=== PATIENT | male | born 1985 | race Caucasian/White ===

== ENCOUNTER 2020-06-03 08:14 | Outpatient (REF) | payer OTHER, SELFPAY | END 2020-06-03 08:15 | disposition home or self-care (01) | LOC: HO.HMGCLDS 08:14 | PROVIDERS: PCP Internal Medicine; Visit Provider Internal Medicine | DX: Z20.828 Contact with and (suspected) exposure to other viral communicable diseases (principal) | CPT/HCPCS: C9803; U0003 ==

== ENCOUNTER 2020-06-11 09:44 | Outpatient (REF) | payer OTHER, SELFPAY | END 2020-06-11 09:45 | disposition home or self-care (01) | LOC: HO.HMGCLDS 09:44 | PROVIDERS: PCP Internal Medicine; Visit Provider Internal Medicine | DX: Z20.828 Contact with and (suspected) exposure to other viral communicable diseases (principal) | CPT/HCPCS: C9803; U0003 ==

== ENCOUNTER 2020-08-06 07:14 | Outpatient (REF) | payer OTHER, SELFPAY ==
[2020-08-06 07:49] LABS: MANUAL DIFF FLAG NO
[2020-08-06 08:02] LABS: Basophils Absolute Auto 0.1 X10*3/uL (0.0-0.2); Eosinophils Absolute Auto 0.1 X10*3/uL (0.0-0.4); Eosinophils Percent Auto 1.8 % (0-4); Hematocrit 46.5 % (42-52); Hemoglobin 14.8 g/dl (14.0-18.0); Imm Gran Abs Auto 0.02 X10*3/uL (0.00-0.03); Imm Gran Pct Auto 0.3 % (0.0-0.4); Lymphocytes Absolute Auto 2.1 X10*3/uL (1.2-4.9); Lymphocytes Percent Auto 33.2 % (20-40); Mean Corpuscular HGB Conc 31.8 g/dl (31.0-36.0); Mean Corpuscular Hemoglobin 25.7 pg (27.0-33.0); Mean Corpuscular Volume 80.7 fL (80-98); Mean Platelet Volume 9.9 fL (9.4-12.4); Monocytes Absolute Auto 0.4 X10*3/uL (0.1-1.2); Monocytes Percent Auto 7.1 % (2-11); Neutrophils Absolute Auto 3.5 X10*3/uL (2.0-8.3); Neutrophils Percent Auto 56.6 % (45-73); Platelet Count 222 X10*3/uL (160-400); Red Blood Count 5.76 X10*6/uL (4.60-5.80); Red Cell Distribution Width 13.7 % (11.0-16.0); White Blood Count 6.2 X10*3/uL (4.8-10.8)
[2020-08-06 08:31] LABS: Alanine Aminotransferase 14 U/L (0-40); Albumin Level 4.4 g/dL (3.5-5.0); Alkaline Phosphatase 96 U/L (39-117); Anion Gap 12 (12-20); Aspartate Amino Transferase 15 U/L (5-37); Bilirubin Total 0.4 mg/dL (0.0-1.0); Blood Urea Nitrogen 20 mg/dL (9-16); Calcium 8.9 mg/dL (8.4-10.2); Carbon Dioxide 30 mmol/L (22-29); Chloride 111 mmol/L (96-108); Cholesterol 144 mg/dL; Estimated Glomerular Filt Rate > 60; Glucose Fasting 97 mg/dL (60-99); HDL Cholesterol 36 mg/dL; LDL Cholesterol Calculated 97 mg/dl; Potassium 4.5 mmol/l (3.3-5.1); Sodium 148 mmol/L (135-145); Total Protein 7.2 g/dL (6.5-8.0); Triglycerides 57 mg/dL
[2020-08-06 08:56] LABS: TSH reflex Free T4 1.18 mIU/mL (0.32-4.0)
== END 2020-08-06 07:15 | disposition home or self-care (01) ==
LOC: HO.LAB 07:14
PROVIDERS: Visit Provider Internal Medicine
DX: E04.9 Nontoxic goiter, unspecified (principal); E66.9 Obesity, unspecified; M25.50 Pain in unspecified joint; Z82.49 Family history of ischemic heart disease and other diseases of the circulatory system
CPT/HCPCS: 36415; 80053; 80061; 84443; 85025

== ENCOUNTER 2020-08-15 08:59 | Outpatient (REF) | payer OTHER, SELFPAY ==
--- NOTE | 2020-08-15 09:04 | US_ITS ---
EXAMINATION: US THYROID CLINICAL INFORMATION: Nontoxic goiter, unspecified COMPARISON: None TECHNIQUE: Linear transducer petty-scale and color Doppler examination with attention to the region of the thyroid. FINDINGS: SIZE: Measurements of the thyroid lobes and nodules are given in sagittal, anteroposterior and transverse dimensions respectively. Right Thyroid Lobe: 5.3 x 1.5 x 2.1 cm, volume 8.5 mL. Parenchyma: The gland echotexture is homogeneous. Thyroid vascularity is normal. Left Thyroid Lobe: 5.2 x 1.8 x 1.6 cm, volume 7.8 mL. Parenchyma: The gland echotexture is homogeneous. Thyroid vascularity is normal. Isthmus: 0.3 cm in maximum AP dimension. NODES: No lymphadenopathy is seen in the tissue surrounding the thyroid gland. US/US thyroid IMPRESSION: Normal appearance of the thyroid gland. ACR TI-RADS Recommendations: No further follow-up. * TR1 (0 point) and TR 2 (2 points): No FNA or follow up * TR3 (3 points): FNA if more than or equal to 2.5 cm in maximum dimension, follow up in 1, 3 and 5 years if 1.5 to 2.4 cm in maximum dimension. * TR 4 (4-6 points): FNA if more than or equal to 1.5 cm in maximum dimension, follow up in 1, 2, 3 and 5 years if 1 to 1.4 cm in maximum dimension. * TR 5 (more than or equal to 7 points): FNA if more than or equal to 1 cm in maximum dimension, follow up every year for 5 years if 0.5 to 0.9 cm in maximum dimension.
--- NOTE | 2020-08-15 09:04 | XR_ITS ---
EXAMINATION: XR HAND, RIGHT XR HAND, LEFT CLINICAL INFORMATION: Pain in the hands COMPARISON: 02/06/2019 TECHNIQUE: 3 views of each hand FINDINGS: Right hand: No fracture or dislocation. Alignment is anatomic. Joint spaces are maintained. The soft tissues are unremarkable. Left hand: No fracture or dislocation. Alignment is anatomic. Joint spaces are maintained. There is a tiny radiopaque density in the dorsal soft tissues of the hand at the level of the mid metacarpal shafts. This is unchanged. XR/XR hand LT 2V IMPRESSION: Tiny radiopaque foreign body in the dorsal soft tissues of the left hand, unchanged from prior. Otherwise normal appearance of the hands.
--- NOTE | 2020-08-15 09:04 | XR_ITS ---
EXAMINATION: XR HAND, RIGHT XR HAND, LEFT CLINICAL INFORMATION: Pain in the hands COMPARISON: 02/06/2019 TECHNIQUE: 3 views of each hand FINDINGS: Right hand: No fracture or dislocation. Alignment is anatomic. Joint spaces are maintained. The soft tissues are unremarkable. Left hand: No fracture or dislocation. Alignment is anatomic. Joint spaces are maintained. There is a tiny radiopaque density in the dorsal soft tissues of the hand at the level of the mid metacarpal shafts. This is unchanged. XR/XR hand RT 2V IMPRESSION: Tiny radiopaque foreign body in the dorsal soft tissues of the left hand, unchanged from prior. Otherwise normal appearance of the hands.
== END 2020-08-15 09:00 | disposition home or self-care (01) ==
LOC: HO.US 08:59
PROVIDERS: PCP Internal Medicine; Visit Provider Internal Medicine
DX: E04.9 Nontoxic goiter, unspecified (principal); M79.642 Pain in left hand; M79.641 Pain in right hand
CPT/HCPCS: 73120; 76536

== ENCOUNTER 2020-10-01 15:00 | Outpatient (RCR) | payer OTHER, SELFPAY ==
--- NOTE | 2020-09-04 09:00 | MHC.OT.OEV ---
[address] [phone] F: [phone] Occupational Therapy Evaluation Diagnosis: De Quervain's Tendinitis, mild CTS Date of Onset: 08/19/14 Attending Provider: Dr Percy Yost Prescribed Treatment: Eval and Treat History of Current Condition: Pt w/ bilateral hand pain over the past few years, saw a hand therapist in [place] and was recommended to wear a thumb spica orthosis for De Quervain's tendinitis. Significant Medical History: None Precautions/Contraindications: None Patient Goals: Strengthen hands Hand Dominance: Right QuickDASH Score: 41 Prior Level of Function and Occupation Self Care, Employment, Leisure: Works for a [employer], travels, does some lifting w/ good activity modification (uses carts instead of carrying) Living Situation, Family and/or Social Support: Lives w/ and 5 mo old daughter Current Level of Function and Occupation Self Care, Employment, Leisure: Difficulty lifting his daughter, pain w/ carrying groceries Sleep: Some restlessness due to hand pain, also with other pain throughout body, wears compression Driving: [facility], wears wrist orthosis, drives for works Vision: [facility] Balance: [facility] Pain Assessment Pain Score: 0-8 Pain Scale Used: Pain Location and Description: Tenderness and pain at B/L radial wrists, right > left, (+) Finklestein's Aggravating Factors: Pain w/ lifting Alleviating Factors: Wears soft neoprene orthosis, Aleve PRN Skin and Soft Tissue Assessment Skin and Soft Tissue: Comments: Mild atrophy right thenar eminence Nerve assessment Ulnar Nerve: WNL Median Nerve: WNL Radial Nerve: WNL Comments: (-) Phalen's Sensory Assessment Light Touch: WFL Proprioception: WF Comments: [place] Bill 3.61 Right median distribution, otherwise B/L 2.83 Edema Assessment Upper Extremity: WNL Lower Extremity: WNL Comments: Wrist R 17.7 cm L 17.4 cm Dexterity Assessment Comments: Pt states he drops items Nine Hole Peg R 26 sec L 28 sec Special Tests Comments: AROM(PROM) Strength Digits Index MCP: PIP: DIP: Long MCP: PIP: DIP: Ring MCP: PIP: DIP: Small MCP: PIP: DIP: Comments: Gross Grasp: R 80 L 90 Lateral Pinch: R 14 L 17 Two-Point Pinch: R 10 L 8 Three-Jaw Francois: R 16 L 13 Comments: Patient Education Primary Language: Grenadian Level Vial Inspector And Tester Required: No Current Knowledge: Understands information with skills for self-management Teaching Method: Handouts Verbal Education Needs Identified on Evaluation: ADL's Disease Information Equipment Use Exercise Pain Safety How did patient/family demonstrate learning? Patient demonstrates Patient verbalizes Barriers to Learning: None Readiness for Learning: Accepting Who was educated? Patient Comments: HEP for De Quervains and CTS Plan of Care Assessment: Blade presents w/ B/L hand pain for > five years, right worse than left. He was seen once in therapy in [place] and has been wearing a thumb spica orthosis in his right hand with some relief. On assessment, he has mild weakness in right hand, slightly impaired sensation in right thumb and index and is reporting low pain. S/S consistant with De Quervain's tendinitis and mild CTS, right worse than left. He will benefit from cont'd therapy to address joint protection, activity modification and progression of HEP. STG Duration: 1 week Short Term Goals: Ind w/ HEP Good use of ice and heat appropriately Good follow through w/ activity modification and joint protection technqiues LTG Duration: 3 weeks Residential Goals: Right gross grasp >90 lb QuichDASH score <25 pts Pt to report decrease pain/nunbess at nighttime Frequency and Duration: The patient will be seen 2x/wk for 3 weeks Treatment Plan: Therapeutic Exercise Therapeutic Activity Home Exercise Program Splinting Patient Education Edema Control ADL Training Ultrasound Iontophoresis Fluidotherapy MHP Cold Packs Soft Tissue Mobilization Kinesiotaping Electronically Signed By: Gini Antonio OTR/L Please sign and return to therapist, Thank you for your referral.
--- NOTE | 2020-10-01 15:32 | MHC.OT.DC ---
[address] [phone] F: [phone] Occupational Therapy Discharge Note Provider: Dr Percy Yost Diagnosis: De Quervain's Tendinitis, mild CTS Date of Evaluation: 09/04/20 Date of Discharge: 10/01/20 Treatments to Date: 5 Cancellations to Date: 0 No Shows to Date: 0 Discharge Status: Achieved Goals Improved Function Independent with HEP Discharge Summary: Goals met, doing well w/ strength, range and overall self management w/ orthosis, HEP and joint modification/activity modifications. Electronically Signed By: Gini Antonio OTR/L Please Sign and return to therapist, thank you for your referral.
== END 2020-10-01 15:32 | disposition other institution (70) ==
LOC: HO.OT 15:00
PROVIDERS: PCP Internal Medicine; Visit Provider Internal Medicine
DX: M79.641 Pain in right hand (principal); M79.642 Pain in left hand
CPT/HCPCS: 97033; 97110; 97140; 97165

== ENCOUNTER 2021-04-04 23:46 | Emergency (ER) | payer OTHER, SELFPAY ==
--- NOTE | ~2021-04-04 | XR_ITS ---
EXAMINATION: XR FOOT, RIGHT CLINICAL INFORMATION: Pain COMPARISON: None TECHNIQUE: AP, lateral, and oblique views of the right foot. FINDINGS: Osseous alignment is anatomic. No acute fracture is seen. Posterior calcaneal spur is noted. Some soft tissue swelling is present along the medial proximal foot. XR/XR foot RT 2V IMPRESSION: No acute osseous findings. Soft tissue swelling of the proximal foot.
[2021-04-05 00:34] VITALS: BP 127/76; PULSE 90; RESP 18; TEMP 36.2; O2SAT 99; BMI 34.2
--- NOTE | 2021-04-05 00:43 | PC.NURSE ---
pt called from waiting room with no answer.
--- NOTE | 2021-04-05 01:19 | ED_ITS ---
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 since afternoon today does not remember any injury but was getting heavy weights at work and tilted to one side since then complaining of pain in the right dorsum of the foot Related Data Previous Rx's Medication Instructions Recorded ibuprofen 600 mg tablet 600 mg PO Q6H PRN #20 tab 04/05/21 Allergies Allergy/AdvReac Type Severity Reaction Status Date / Time No Known Allergies Allergy Verified 08/05/20 14:00 [No Known Allergies*] Review of Systems Review of Systems: Yes all other systems are reviewed and are negative [facility] Past Medical History Medical History Family history of hypertension Goiter Hand pain Obese Polyarthralgia Surgical History No pertinent past surgical history Family History Family History Father No problems noted. Mother Hypertension Maternal Grandfather Cancer Maternal Aunt Cancer Diabetes Stroke Brother No problems noted. Social History Social History Alcohol intake: current Alcohol intake frequency: holidays/special occasions only Advance Directives: No Physical Exam Vital Signs: Vital Signs: Last Vital Signs Temp 97.2 F 04/05/21 00:34 Pulse 90 04/05/21 00:34 Resp 18 04/05/21 00:34 BP 127/76 04/05/21 00:34 Pulse Ox 99 04/05/21 00:34 Body Mass Index 34.2 Const: General: no acute distress Extrem: Ankle/foot/toe images: 1. Soft tissue swelling and on the dorsum and lateral aspect of the right foot with tenderness no deformity Discharge Plan Discharge Clinical Impression: Right foot sprain Qualifiers: Encounter type: initial encounter Qualified Code(s): S93.601A - Unspecified sprain of right foot, initial encounter Patient Disposition: Home, Self-Care Instructions: Foot Sprain (ED) Additional Instructions: Apply ice rest to the right foot Apply Speedy wrap for support Walk on heels Ibuprofen for pain Prescriptions: New ibuprofen 600 mg tablet 600 mg PO Q6H PRN (Reason: pain) Qty: 20 RF: 0 Stand Alone Forms: Work/School Release Interventions: ED Discharge Assessment Last Done: 04/05/21 01:51 Discharge Date/Time: 04/05/21 02:05
[2021-04-05] MEDS: Ibuprofen 600 MG TABLET PO (01:29)
== END 2021-04-05 02:05 | disposition home or self-care (01) ==
PROVIDERS: Emergency Provider Internal Medicine; PCP Internal Medicine
DX: S93.601A Unspecified sprain of right foot, initial encounter (principal); M79.671 Pain in right foot; R60.0 Localized edema; X58.XXXA Exposure to other specified factors, initial encounter; Y93.9 Activity, unspecified; Y92.9 Unspecified place or not applicable; Y99.9 Unspecified external cause status; Z79.899 Other long term (current) drug therapy
CPT/HCPCS: 73620; 99283

== ENCOUNTER 2021-06-02 15:30 | Outpatient (RCR) | payer OTHER, SELFPAY ==
--- NOTE | 2021-05-13 11:00 | MHC.OT.OEV ---
[address] [phone] F: [phone] Occupational Therapy Evaluation Diagnosis: Left Hand Pain Date of Onset: 02/16/21 Date of Surgery: Attending Provider: Dr Percy Yost Prescribed Treatment: Eval and Treat MD Follow Up Appointment: History of Current Condition: Pt started a new job in October, fell and hit his right hand and wrist, had increased pain and edema and was favoring left hand. He has since developed pain and edema in his left hand/wrist. Right hand has recovered, but left symptoms persist. 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 [employer] Living Situation, Family and/or Social Support: Lives w/ with and 13 mo old daughter Current Level of Function and Occupation Self Care, Employment, Leisure: Difficulty w/ repetetive lifitng of boxes at work, occasional pain w/ lifting his daughter Sleep: Sometimes goes to bed with pain and wakes up frequently Driving: No issues Vision: Balance: Pain Assessment Pain Score: Pain Scale Used: Numeric (0 - 10) Pain Location and Description: Left hand dorsal webspace, unable to provoke w/ tenderness or resistance during assessment Worsens throughout the day, throbbing at times Aggravating Factors: Lifting objects, carrying his daughter Alleviating Factors: Aleve, thumb spica, alternates between cool and warm packs, K-tape for work Skin and Soft Tissue Assessment Skin and Soft Tissue: Comments: WNL Nerve assessment Ulnar Nerve: WFL Median Nerve: WFL Radial Nerve: WFL Comments: Sensory Assessment Temperature: WFL Light Touch: WFL Proprioception: WFL Vibration: Comments: Pt reports tingling in all digit tips and cold feeling at times when he has 'flare ups' of pain Edema Assessment Upper Extremity: WNL Lower Extremity: WNL Comments: Dexterity Assessment Dexterity: WFL Comments: Special Tests Comments: (+) Finklestein's AROM(PROM) Strength Cervical Cervical Flexion: Cervical Extension: Cervical Lateral Flexion: Cervical Rotation: Comments: WFL Shoulder Flexion: Extension: Abduction: Internal Rotation: External Rotation: Comments: WFL Flexion: Extension: Abduction: Internal Rotation: External Rotation: Comments: Elbow Flexion: Extension: Pronation: Supination: Comments: WFL Flexion: Extension: Pronation: Supination: Comments: Wrist Flexion: Extension: Ulnar Deviation: Radial Deviation: Comments: WFL Flexion: Extension: Ulnar Deviation: Radial Deviation: Comments: Thumb Thumb CMC Flexion: Thumb MCP Flexion: Thumb IP Flexion: Radial Abduction: Palmar Abduction: Lugoff (Kapandji 0-10): Comments: WFL Digits Index MCP: PIP: DIP: Long MCP: PIP: DIP: Ring MCP: PIP: DIP: Small MCP: PIP: DIP: Comments: WFL Gross Grasp: R 82 L 48 Lateral Pinch: R 13 L 12 Two-Point Pinch: R 3 L 7 Three-Jaw Francois: R 3 L 7 Comments: Patient Education Primary Language: Pneumatic Hoist Operator Required: No Current Knowledge: Understands information with skills for self-management Teaching Method: Demonstration Verbal Education Needs Identified on Evaluation: ADL's Exercise Pain Safety How did patient/family demonstrate learning? Patient demonstrates Patient verbalizes Barriers to Learning: None Readiness for Learning: Accepting Who was educated? Patient Comments: Plan of Care Assessment: 36 yo right hand dominant male presents w/ persistent left hand pain over the past couple months. Original injury was fall onto right hand, but since he was favoring hand and completing most home and work tasks w/ left hand, he now has increase in pain, specifically in dorsal webspace and worsened after daily activities and work tasks. On assessment, edema and range are WFL. He sigala decreased gross grasp, but three pinches are equal to right. I am unable to elicit his symptoms or pain, but he works relief w/ k-tape to dorsal index, thumb and hand. We will continue OT for pain management education, functional strengthening, joint protection and activity modification, likely brief course. STG Duration: 3 weeks Short Term Goals: Ind w/ HEP Pt to report <3/10 w/ work tasks Left gross grasp >70lb Quickdash score <30 pts LTG Duration: Color Adviser Goals: same as above Frequency and Duration: The patient will be seen 2x/wk for 3 weeks Treatment Plan: Therapeutic Exercise Therapeutic Activity Home Exercise Program Patient Education Edema Control ADL Training Ultrasound Paraffin Fluidotherapy MHP Cold Packs Soft Tissue Mobilization Kinesiotaping Electronically Signed By: Gini Antonio OTR/L Reviewed/agree with student documentation: N/A Therapist: Please sign and return to therapist, Thank you for your referral.
--- NOTE | 2021-07-07 13:47 | MHC.OT.DC ---
[address] [phone] F: [phone] Occupational Therapy Discharge Note Provider: Dr Percy Yost Diagnosis: Left Hand Pain Date of Evaluation: 05/13/21 Date of Discharge: 07/07/21 Treatments to Date: 3 Discharge Status: Achieved Goals Independent with HEP Patient Elected to Stop Discharge Summary: Blade was referred to OT for left hand pain due to overuse injury. He has not attended OT in over a month, however on last visit he was mostly asymptomic and reported pain and edema primarily after work tasks. He is Ind w/ his home program and activity modification. Electronically Signed By: Gini Antonio OTR/Frances CHT Reviewed/agree with student documentation: N/A Therapist: Please Sign and return to therapist, thank you for your referral.
== END 2021-07-07 13:48 | disposition home or self-care (01) ==
LOC: HO.OT 15:30
PROVIDERS: PCP Internal Medicine; Visit Provider Internal Medicine
DX: M79.642 Pain in left hand (principal)
CPT/HCPCS: 97035; 97110; 97140; 97165

== ENCOUNTER 2021-06-24 14:00 | Outpatient (REF) | payer OTHER, SELFPAY | END 2021-06-24 14:01 | disposition home or self-care (01) | LOC: HO.HMGCLDS 14:00 | PROVIDERS: Visit Provider Internal Medicine | DX: Z20.822 Contact with and (suspected) exposure to COVID-19 (principal) | CPT/HCPCS: C9803; U0003; U0005 ==

== ENCOUNTER 2022-09-28 15:17 | Outpatient (REF) | payer BC, OTHER, SELFPAY ==
--- NOTE | ~2022-09-28 | XR_ITS ---
EXAMINATION: XR THORACOLUMBAR SPINE CLINICAL INFORMATION: Thoracic spine pain x3 months. COMPARISON: None available. TECHNIQUE: 3 views thoracic spine. FINDINGS: The vertebral alignment is normal. No intrinsic bony abnormality. The disc heights and are well maintained. The endplates show minimal spondylitic changes. No fracture or subluxation. The surrounding prevertebral soft tissues are unremarkable. XR/XR thoracic spine 2V IMPRESSION: Minimal spondylitic change. No acute finding.
== END 2022-09-28 15:18 | disposition home or self-care (01) ==
LOC: HO.XRAY 15:17
PROVIDERS: PCP Internal Medicine; Visit Provider Internal Medicine
DX: M54.6 Pain in thoracic spine (principal)
CPT/HCPCS: 72070

== ENCOUNTER 2022-10-20 16:00 | Outpatient (RCR) | payer BC, SELFPAY ==
--- NOTE | 2022-10-01 15:44 | MHC.PT.EP ---
[facility] [place] Office [place] Office [place] Office [address] Sylwia Alamguer [address] [phone] F: [phone] F: [phone] F: [phone] F: [phone] Physical Therapy Plan of Care Date of Evaluation: Date of Surgery: Diagnosis: Thoracic spine pain. Assessment: Pt is a 37 y/o male referred to PT for eval and treat of thoracic spine pain resulting in decreased tolerance for lifting objects of weight, tolerating static sitting and standing for duration, as well as performing heavy work and HH chore tasks, and disturbed sleep secondary to swayback posture, decreased core strength, spinal instability, decreased trunk ROM, increased dorsal tissue tension, and pain. Pt is deemed an appropriate candidate to receive skilled PT services to address their physical impairments in order to improve their functional ability. Frequency and Duration: The patient will be seen 2 x / wk x 5 wks. Short Term Goals: Initiate HEP and lumbar stab. Improve baseline pain with activity to < 1-6/10; initial: 2-8/10. Loan Review Analyst Goals: I with home program. Pt will be able to sit as long as he'd like with managed Sx; initial: < 1hour. Pt will report < 1/4 disturbed night's sleep; initial: 1/2 disturbed. Improve core strength to WNL: initial: good(-). Improve Jia by 9 points in order to demonstrate improved functional ability. Treatment Plan: Modalities to reduce pain, spasms and effusion. Manual therapy to restore motion and function. Therapeutic exercise to improve strength and flexibility. Neuromuscular re-education for posture and balance. Therapeutic activities to return to functional activities of daily living. Electronically signed by: Reid Xie PT Please sign and return to therapist. Thank you for your referral.
--- NOTE | 2022-12-24 08:28 | MHC.PT.DC ---
[facility] [place] Office [place] Office [place] Office [address] Sylwia Almaguer [address] [phone] F: [phone] F: [phone] F: [phone] F: [phone] Physical Therapy Discharge Report Diagnosis: Thoracic spine pain. Date of Surgery: Date of Evaluation: 10/01/22 Date of Discharge: 12/24/22 Treatments to Date: 4 Cancellations to Date: 3 No Shows to Date: 2 Discharge Status: Visit Non-compliance Discharge Summary: Electronically signed by: Reid Xie PT. Please sign and return to therapist. Thank you for your referral.
== END 2022-12-24 08:27 | disposition home or self-care (01) ==
LOC: HO.PTCHIC 16:00
PROVIDERS: PCP Internal Medicine; Visit Provider Internal Medicine
DX: M54.6 Pain in thoracic spine (principal)
CPT/HCPCS: 97110; 97161

== ENCOUNTER 2022-10-21 09:52 | Outpatient (REF) | payer BC, SELFPAY ==
[2022-10-21 11:34] LABS: Appearance Urine Clear; Color Urine Yellow; Glucose Urine UA Negative (Negative); Leukocyte Esterase Urine Negative (Negative); Nitrite Urine Negative (Negative); PH 6.5 (5.0-9.0); Urine Blood Negative (Negative); Urine Ketones Negative (Negative); Urine Protein Negative (Neg-Trace)
== END 2022-10-21 09:53 | disposition home or self-care (01) ==
LOC: HO.LAB 09:52
PROVIDERS: PCP Internal Medicine; Visit Provider Internal Medicine
DX: R30.0 Dysuria (principal)
CPT/HCPCS: 81003

== ENCOUNTER 2023-03-10 14:37 | Outpatient (AMB) | payer BC, SELFPAY ==
[2023-03-10 14:44] VITALS: BP 118/80; BMI 36.6
--- NOTE | 2023-03-10 14:44 | A.OFFPC_ITS ---
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: No Accompanied by: Child Allergies No Known Allergies [No Known Allergies*] Allergy (Verified 03/10/23 14:55) Medication List - Last Reconciled 03/10/23 by Nancy Yost MD No Known Home Meds Tobacco use date assessed: 09/09/22 Dental Screening Dental Screen Date: 03/10/23 Did you have a dental visit in the last 12 months?: Yes Did you have a dental problem in the last 6 months where you did not have access to dental care?: No Was dental information given to patient?: Patient has dentist HPI HPI Comments History of Present Illness Details This is 37-year-old male that comes for his physical exam. Denies any chest pain or shortness of breath. No fever or cough. Doing well. [facility] Medical History (Updated 03/10/23 @ 15:04 by Nancy Yost MD) Family history of hypertension Goiter Hand pain Left hand pain Obese Polyarthralgia Surgical History No pertinent past surgical history Family History (Updated 03/10/23 @ 14:57 by Nancy Yost MD) Father Diabetes Mother Hypertension Maternal Grandfather Cancer Maternal Aunt Cancer Diabetes Stroke Brother No problems noted. Social History Housing: Apartment Alcohol intake: current Alcohol intake frequency: holidays/special occasions only Alcohol type: hard liquor Patient Tobacco Use Status: Never used Tobacco e-Cigarette/Vaping Use: Never Used Second Hand Smoke Exposure: No service: No Current occupational status: employed Current occupational exposures/hazards: No Cognitive needs: No Hearing needs: No Vision needs: Yes Questionnaire Thrive Questionnaire Date Thrive assessed: 09/09/22 JHONATHAN-7 AMB Questionnaire JHONATHAN-7 Date JHONATHAN - 7 assessed: 09/09/22 Source: Developed by Drs. Barron Aguayo, Tatum Reyes, Edi Andre and colleagues, with an educational sally from [employer]. Review of Systems Const All systems reviewed & are unremarkable except as noted in HPI and below Eyes Reports no additional complaints, Denies change in vision and Denies other visual disturbances Card Denies chest pain at rest, Denies chest pain with activity, Denies edema, Denies irregular heart rhythm, Denies claudication, Denies dyspnea, Denies dyspnea on exertion, Denies orthopnea, Denies paroxysmal nocturnal dyspnea and Denies slow heart rate Resp Denies cough, Denies dyspnea and Denies dyspnea on exertion GI Denies abdominal pain, Denies change in bowel habits, Denies excessive flatus, Denies nausea and Denies vomiting Denies urinary hesitancy, Denies urinary incontinence and Denies urinary urgency Musc Denies abnormal gait, Denies atrophy, Denies deformity and Denies limited range of motion Skin/Breast Denies bleeding lesions, Denies changing lesions and Denies rash Neuro Denies abnormal gait and Denies lack of coordination Physical exam (Primary Care) Vital Signs: Last Vital Signs BP 118/80 03/10/23 14:44 BMI result Body Mass Index 36.6 Tobacco/Smoking Status: Tobacco use Status Tobacco use date assessed 09/09/22 03/10/23 14:48 Patient Tobacco Use Status Never used Tobacco 03/10/23 14:48 e-Cigarette/Vaping Use Never Used 03/10/23 14:48 Thrive Assessment: Date of Thrive Assessment Date Thrive assessed 09/09/22 03/10/23 14:48 Const Orientation/consciousness: patient oriented x3 HENMT Head: Yes normal to inspection, Yes normocephalic and Yes atraumatic Ears: external ears normal Eyes General: appearance normal, both eyes and all related structures Eyelids: Yes eyelids normal Conjunctivae: conjunctivae normal Neck Neck: Yes normal visual inspection and Yes supple Resp Effort & Inspection: normal respiratory effort Auscultation: clear to auscultation bilaterally Cardio Jugular venous distension: no JVD Rate: regular rate Rhythm: regular rhythm Heart sounds: S1 normal heart sound present and S2 normal heart sound present GI Inspection: Yes normal to inspection Palpation (GI): Soft to palpation and nontender Auscultation: normal bowel sounds Skin General skin exam: no rashes or lesions noted Neuro General: patient oriented x3 and no focal motor deficits Extrem General: Yes full ROM Psych Appearance: grossly normal Assessment and Plan Assessment & Plan (1) Encounter for physical examination: Code(s): Z00.00 - Encounter for general adult medical examination without abnormal findings Plan: Repeat in a year Coding Level of Care Code Est Pt Prev Care 18-39y(13503) Diagnoses Encounter for physical examination Z00.00 Time Spent (min) 30
== END 2023-03-10 15:03 | disposition home or self-care (01) ==
PROVIDERS: PCP Internal Medicine; Visit Provider Internal Medicine
DX: Z00.00 Encounter for general adult medical examination without abnormal findings (principal)
CPT/HCPCS: 99395